=== PATIENT | male | born 1950 | race Caucasian/White ===

== ENCOUNTER 2016-08-20 13:17 | Inpatient (IN) | payer OTHER ==
--- NOTE | ~2016-08-20 | PA ---
Unit #: [id number] #: [id number] Patient: VEENA BOTELLO [id number] [place] [address] [id number] MR#: [id number] NAME: VEENA BOTELLO. ROOM: [facility] Age: 66 Sex: M Admission Date: 08/20/2016 : 1950 Date of Assessment: 08/21/2016 Attending Physician: Clyde Wilkinson M.D. Admitting Physician: Clyde Wilkinson M.D. Primary Care Physician: Primary Care Physician No PSYCHIATRIC ASSESSMENT INFORMANTS The patient reliability, fair informant and chart reliability, good. CHIEF COMPLAINT Opioid abuse. HISTORY OF PRESENT ILLNESS Mr. Loja is a 66-year-old male, seen on . The patient wanted to get off from methadone. The patient reported that he has been on methadone for the last 10 years. The patient reports that he was on 120 and reports "I wanted to cut down to 60 mg." The patient reports "it took me 5 days and I don't want to go through that again." The patient reports that he has been having poor sleep, detoxing by himself. The patient reports still involved in [facility]. The patient reports that "I have not been sleeping and I have been really anxious." The patient denied any suicidal or homicidal ideation or any auditory or visual hallucination. The patient was admitted to inpatient program for psychiatric stabilization and for detox. The patient reported alcohol use, age of onset 16; tobacco, age of onset 16; opioid, age of onset 43; and methadone, age of onset 54. The patient denied use of anything else except for methadone. The patient denied any history of blackout, HIV, hepatitis, or withdrawal symptom. No IV drug use. PAST PSYCHIATRIC HISTORY Remarkable for anxiety and opioid addiction and dependence. MEDICAL HISTORY Remarkable for diabetes. Musculoskeletal; muscle strength and tone, no atrophy or abnormal movement. Gait normal. MEDICATION HISTORY The patient is on gabapentin, Glucophage, and methadone. ALLERGIES No known drug allergies. SUBSTANCE ABUSE HISTORY Please see above. REVIEW OF SYSTEMS HEENT: Eyes, clear. Ears, nose, mouth, and throat; clear. CARDIOVASCULAR: Unremarkable. RESPIRATORY: Unremarkable. Unit #: [id number] #: [id number] Patient: VEENA BOTELLO GI: Unremarkable. : Unremarkable. SKIN: Unremarkable. LYMPH NODE: Unremarkable. NEUROLOGIC: Unremarkable. ENDOCRINE: Unremarkable. HEMATOLOGIC: Unremarkable. ALLERGIC/IMMUNOLOGIC: Unremarkable. MUSCULOSKELETAL: Muscle strength and tone, no atrophy or abnormal movement. Gait normal. MENTAL STATUS EXAMINATION CONSTITUTIONAL: Measurement of vital signs; temperature 97.9, heart rate 82, respiratory rate 18, blood pressure 146/81, height 5 feet 9 inches, and weight 195 pounds. GENERAL APPEARANCE: The patient dressed casually. The patient did not show any facial deformity. MUSCULOSKELETAL: Please see above. PSYCHIATRIC EXAMINATION Description of speech; regular rate, normal volume, normal articulation, and coherent. Description of thought process, goal directed. Description of association, intact. Description of abnormal psychotic thinking; the patient denied any hallucinations or delusions, but history of substance abuse. Denied any suicidal or homicidal ideation. Denied any psychotic symptom. Description of the patient's judgment: Concerning everyday activity, fair. Social situation, fair. Concerning psychiatric condition, fair. Complete mental status examination; oriented in time, place, and person. Recent and remote memory, fair. Attention span and concentration, fair. Language, able to name object and repeat phrases. Fund of knowledge, aware of current event and passive vocabulary intact. Mood and affect, sad and dysphoric. Insight and judgment, fair. ASSETS AND LIABILITIES Assets, the patient is articulate and able to take care of his ADL. Liability, history of methadone dependence. ADMITTING DIAGNOSES Psychiatric: Opioid use disorder, moderate, F11.20 and mood disorder, not otherwise specified, F32.9. Secondary diagnosis: Deferred. Medical diagnosis: Diabetes. Stressors: Psychosocial stressors. PSYCHIATRIC PLAN AND TREATMENT GOAL AND DISCHARGE PLAN 1. Advised to admit the patient on the inpatient unit. Provide safe, supportive, and structured environment. 2. Ordered labs; CBC, CMP, UA, and UDS. 3. Detox protocol and detox monitoring. Continue with home medication. 4. If needed, consider further adjustment of medication. The patient to attend all the programing on the inpatient unit. TREATMENT GOAL Unit #: [id number] #: [id number] Patient: VEENA BOTELLO To attain euthymic mood, gain insight into his problem, and learn coping skills. DISCHARGE PLAN Plan to stabilize the patient and consider followup in outpatient program. ESTIMATED LENGTH OF STAY 3 to 5 days. Dictated by... Rosa Montanez/spenser TD: 08/21/2016 18:17 JOB #: [id number] PSYCHIATRIC ASSESSMENT X Clyde Wilkinson MD PSYCHIATRIC ASSESSMENT
--- NOTE | ~2016-08-20 | HP ---
Unit #: [id number] #: [id number] Patient: VEENA BOTELLO [id number] [place] [address] [id number] MR#: [id number] NAME: VEENA BOTELLO. ROOM: P186 Age: 66 Sex: M Admission Date: 08/20/2016 : 1950 Attending Physician: Clyde Wilkinson M.D. Admitting Physician: Clyde Wilkinson M.D. Primary Care Physician: Primary Care Physician No HISTORY AND PHYSICAL HISTORY OF PRESENT ILLNESS Veena is a 66 year old, who was admitted and discharged within the first twenty-four hours. He was not seen for a history and physical. Dictated by... Tena Strickland P.A.-C. for Rosa Del Angel/lakeshia TD: 08/21/2016 12:32 JOB #: [id number] HISTORY AND PHYSICAL X Tena Strickland HISTORY AND PHYSICAL
--- NOTE | ~2016-08-20 | DS ---
Unit #: [id number] #: [id number] Patient: VEENA BOTELLO [id number] [facility] [address] [place] [address] [id number] MR#: [id number] NAME: VEENA BOTELLO. ROOM: [facility] Age: 66 Sex: M Admission Date: 08/20/2016 : 1950 Discharge Date: 08/21/2016 Attending Physician: Clyde Wilkinson M.D. Primary Care Physician: Primary Care Physician No DISCHARGE SUMMARY REASON FOR ADMISSION Methadone detox. DIAGNOSTIC STUDIES LABORATORY RESULTS: Remarkable for a glucose of 128 and ALT 8. HOSPITAL COURSE The patient was admitted to inpatient unit on . The patient was admitted on 08/20/2016 and discharged on 08/21/2016. The patient was treated on the inpatient unit with group therapy, individual therapy, and structured milieu. The patient requested for discharge. The patient reported that he would like to follow up on the outpatient basis. The patient was not suicidal or homicidal. Denied any psychotic symptom. Subsequently, the patient was discharged with a plan to follow up in outpatient clinic. DISCHARGE MEDICATIONS None. The patient is to continue with his home medication. DISCHARGE DIAGNOSES Psychiatric: 1. Opioid use disorder, moderate, F11.20. 2. Mood disorder, not otherwise specified, F32.9. Secondary diagnosis: Deferred. Medical diagnosis: Diabetes. Stressors: Psychosocial stressors. DISCHARGE INSTRUCTIONS The patient is to follow up in outpatient clinic as per social security assessor. CONDITION ON DISCHARGE The patient was pleasant and cooperative. Denied any psychotic symptom or any suicidal ideation. PROGNOSIS Guarded. DIET AND ACTIVITY As tolerated. Unit #: [id number] #: [id number] Patient: VEENA BOTELLO Dictated by... Rosa Montanez/spenser TD: 08/21/2016 20:24 JOB #: [id number] DISCHARGE SUMMARY X Clyde Wilkinson MD X DISCHARGE SUMMARY
[2016-08-21 10:20] LABS: BASOPHIL# 0.1 X10e3 (0-0.3); BASOPHIL% 1.2 % (0-2.5); EOSINOPHIL# 0.4 X10e3 (0-0.7); EOSINOPHIL% 5.2 % (0.0-7.0); HEMATOCRIT 45.9 % (38.0-50.0); HEMOGLOBIN 15.3 gm/dL (13.0-16.0); LYMPHOCYTE# 2.6 X10e3 (1.0-3.5); LYMPHOCYTE% 32.5 % (17.0-45.0); MEAN CELL VOLUME 89.9 FL (83-96); MEAN CORPUSCULAR HEMOGLOBIN 29.9 PG (28-34); MEAN CORPUSCULAR HGB CONC 33.3 g/dL (30-36); MEAN PLATELET VOLUME 7.1 FL (6.5-11.5); MONOCYTE# 0.5 X10e3 (0-1.0); MONOCYTE% 6.2 % (3.0-12.0); NEUTROPHIL# 4.3 X10e3 (1.5-7.1); NEUTROPHIL% 54.9 % (40-75); PLATELET COUNT 207 X10e3 (140-420); WHITE BLOOD COUNT 7.8 X10e3 (4.0-10.5)
[2016-08-21 10:27] LABS: DIFF IND NO
[2016-08-21 10:38] LABS: THYROID STIMULATING HORMONE 0.65 uIU/ml (0.34-5.60)
[2016-08-21 10:44] LABS: ALBUMIN SERUM 3.9 g/dL (3.5-5.0); ALKALINE PHOSPHATASE 71 U/L (32-92); ALT (SGPT) 8 U/L (10-40); AST (SGOT) 16 U/L (10-42); BILIRUBIN,TOTAL 0.8 mg/dL (0.2-2.0); BLOOD UREA NITROGEN 10 mg/dL (9-23); CALCIUM SERUM 9.5 mg/dL (8.4-10.2); CARBON DIOXIDE 30 mmol/L (22-31); CHLORIDE 106 mmol/L (100-111); GLOM FILT RATE Estimated ABOVE60 mL/min (>60); GLUCOSE FASTING 128 mg/dL (70-110); POTASSIUM 4.7 mmol/L (3.5-5.1); PROTEIN TOTAL SERUM 6.7 g/dL (6.0-8.3); SODIUM 143 mmol/L (135-145)
[2016-08-21 10:48] LABS: FREE THYROXIN (T4) 0.77 ng/dL (0.58-1.64)
== END 2016-08-21 10:26 | disposition home or self-care (01) | DRG 897 ==
LOC: P1E 13:17
PROVIDERS: Psychiatry & Neurology Psychiatry
DX: F11.20 Opioid dependence, uncomplicated (principal); E11.9 Type 2 diabetes mellitus without complications
CPT/HCPCS: 80053; 83036; 84439; 84443; 85025; 86592